=== PATIENT | male | born 1935 | race Caucasian/White ===

== ENCOUNTER 2016-11-02 12:10 | Observation (INO) ==
--- NOTE | 2016-11-02 12:56 | Emergency Department Note ---
Disposition Clinical Impression: Chest pain, Diabetes, History of hypertension, Hyperlipidemia, Frail elderly, Abnormal EKG, Renal insufficiency Disposition: Admitted As Inpatient Referrals: NONE,PCP [Non-Partnered Physician] - General Adult HPI - General Chief complaint: ED Shortness of Breath/Dyspnea Stated complaint: epigastric pain Time Seen by Provider: 11/02/16 12:47 Source: patient Limitations: no limitations - History of Present Illness HPI Narrative: 81-year-old male reports to the emergency department complaining of chest pain. It is been in the bilateral chest made area and somewhat on the right. He describes a cough and some chest pain when breathing in and out. There is no history of leg swelling or pain or coughing up blood. No syncope. No trauma. No fever runny nose or ear pain or sore throat he patient denies any previous cardiac testing, he has no history of CAD DVT PE cancer or aneurysm. The patient has had no leg swelling he does not usually take diuretics. He states he has a history of diabetes, hypertension, and hyperlipidemia. He states he is type II diabetic. There is no history of tearing back pain. Trouble walking talking hearing seeing or speaking no unilateral arm or leg weakness or numbness. No slurred speech or confusion. The patient reports he is always "shaky". There is no history of headache. Pain Scale: 7 - Related Data Allergies Allergy/AdvReac Type Severity Reaction Status Date / Time No Known Allergies Allergy Verified 11/02/16 12:16 All systems ED: reviewed and negative except as stated. Past Medical History - Past Medical History Medical history: Reports: diabetes, hyperlipidemia, hypertension Psychiatric history: Reports: no psych history - Social History Smoking Status: Never smoker Smokeless Tobacco Status: No Alcohol use: Reports: none Drug use: Reports: none Physical Exam - General Limitations: no limitations General appearance: alert, in no apparent distress - Head Head exam: atraumatic, normocephalic, normal inspection - Eye Eye exam: Present: normal appearance, PERRL, EOMI. Absent: scleral icterus, conjunctival injection, nystagmus, miosis, mydriasis, periorbital swelling - ENT ENT exam: normal exam, normal oropharynx, mucous membranes moist, TM's normal bilaterally, normal external ear exam - Neck Neck exam: Present: normal inspection, full ROM, trachea midline. Absent: tenderness, meningismus - Chest Chest inspection: Present: normal inspection, symmetric chest wall rise. Absent : tenderness - Respiratory Respiratory exam: Present: normal lung sounds bilaterally. Absent: respiratory distress, wheezes, accessory muscle use, prolonged expiratory phase, other - Cardiovascular Cardiovascular exam: Present: regular rate, normal rhythm, normal heart sounds - Abdominal Exam Abdominal exam: Present: soft, Non-Tender. Absent: tenderness, distention, guarding, rebound, rigidity, normal bowel sounds, Moreira's sign, Rovsing's sign , tenderness at McBurney's Point, pulsatile mass - Extremities Exam Extremities exam: Present: normal inspection, full ROM, normal capillary refill. Absent: tenderness, pedal edema, joint swelling, calf tenderness - Expanded Lower Extremity Exam Neurovascular/Tendon exam: Present: normal capillary refill, motor deficit. Absent: sensory deficit, tendon deficit, extremity cold to touch - Back Exam Back exam: Present: normal inspection, full ROM. Absent: tenderness, CVA tenderness (R), CVA tenderness (L), vertebral tenderness - Neurological Exam Neurological exam: Present: alert, oriented X3, CN II-XII intact. Absent: motor sensory deficit - Psychiatric Psychiatric exam: Present: normal affect, normal mood - Skin Skin exam: Present: warm, dry, intact, normal color. Absent: rash, cyanosis, diaphoresis, erythema, pallor, mottled Course Vital Signs Temperature 98.6 F 11/02/16 12:12 Pulse Rate 93 11/02/16 12:12 Respiratory Rate 18 11/02/16 12:12 Blood Pressure 130/86 11/02/16 12:12 O2 Sat by Pulse Oximetry 95 11/02/16 12:12 Temperature 98.6 F 11/02/16 12:12 Pulse Rate 81 11/02/16 14:53 Respiratory Rate 16 11/02/16 14:53 Blood Pressure 155/72 11/02/16 14:53 O2 Sat by Pulse Oximetry 95 11/02/16 14:53 Oxygen Delivery Oxygen Delivery Room Air Medical Decision Making - [facility] Narrative Medical decision making narrative: Patient has been having intermittent chest pain since last night, sometimes in the middle sometimes to the right. Sometimes associated with a cough and sometimes not. The patient is a male, over 50, he has a history of diabetes, hypertension, hyperlipidemia, and is never had a stress test or heart catheter. The patient is testing reveals no major abnormality, however based on his risk factors and elevated heart score, I thought it be appropriate to observe the patient. He was given aspirin in the ED and is agreeable to stay. Case with the hospitalist on-call who is accepted the patient to their care. - Lab Data Lab results reviewed: Yes I reviewed the patient's lab results. Result diagrams: 11/02/16 13:04 11/02/16 13:04 Lab Results 11/02/16 11/02/16 11/02/16 Range/Units 13:04 13:04 13:04 WBC 9.5 (4.3-11.1) K/mcL RBC 5.11 (4.19-5.50) M/mcL Hgb 15.6 (12.9-16.9) g/dL Hct 47.7 (37.5-50.1) % MCV 93.3 (83.0-100.0) fL MCH 30.5 (28.0-33.3) pg MCHC 32.7 (31.6-35.5) g/dL RDW 13.6 (11.5-14.5) % Plt Count 176 (140-400) K/mcL MPV 10.3 (9.4-12.4) fL Immature Gran % 0.2 (0-4) % Seg Neutrophils % 67.7 % Lymphocytes % 22.1 % Monocytes % 8.8 % Eosinophils % 0.9 % Basophils % 0.3 % Neutrophils # 6.5 (1.6-8.9) K/mcL Lymphocytes # 2.1 (0.6-4.6) K/mcL Monocytes # 0.8 (0.0-1.3) K/mcL Eosinophils # 0.1 (0.0-0.6) K/mcL Basophils # 0.0 (0.0-0.2) K/mcL Sodium 137 (136-145) mEq/L Potassium 4.3 (3.5-4.5) mEq/L Chloride 101 (98-109) mEq/L Carbon Dioxide 28 (19-29) mEq/L BUN 22 (8-26) mg/dL Creatinine 1.39 H (0.72-1.25) mg/dL Est GFR ( Amer) 60 (> 60) Est GFR (Non-Af Amer) 49 L (> 60) BUN/Creatinine Ratio 16 (6-26) Glucose 170 H (70-99) mg/dL Calculated Osmolality 291 (280-300) Lactic Acid 1.4 (0.5-2.2) mmol/L Calcium 9.7 (8.6-10.8) mg/dL Total Bilirubin (0.2-1.2) mg/dL Direct Bilirubin (0.0-0.5) mg/dL Indirect Bilirubin (0.0-1.2) mg/dL AST (5-34) Units/L ALT (0-55) Units/L Alkaline Phosphatase (38-126) Units/L Troponin I (0-0.03) ng/mL C-Reactive Protein (Less than 5) mg/L B-Natriuretic Peptide (0-100) pg/mL Serum Total Protein (6.0-8.3) g/dL Albumin (3.5-5.0) g/dL Globulin (2.4-3.5) g/dL Albumin/Globulin Ratio (1.1-2.2) Lipase (8-78) Units/L 11/02/16 11/02/16 11/02/16 Range/Units 13:04 13:04 13:04 WBC (4.3-11.1) K/mcL RBC (4.19-5.50) M/mcL Hgb (12.9-16.9) g/dL Hct (37.5-50.1) % MCV (83.0-100.0) fL MCH (28.0-33.3) pg MCHC (31.6-35.5) g/dL RDW (11.5-14.5) % Plt Count (140-400) K/mcL MPV (9.4-12.4) fL Immature Gran % (0-4) % Seg Neutrophils % % Lymphocytes % % Monocytes % % Eosinophils % % Basophils % % Neutrophils # (1.6-8.9) K/mcL Lymphocytes # (0.6-4.6) K/mcL Monocytes # (0.0-1.3) K/mcL Eosinophils # (0.0-0.6) K/mcL Basophils # (0.0-0.2) K/mcL Sodium (136-145) mEq/L Potassium (3.5-4.5) mEq/L Chloride (98-109) mEq/L Carbon Dioxide (19-29) mEq/L BUN (8-26) mg/dL Creatinine (0.72-1.25) mg/dL Est GFR ( Amer) (> 60) Est GFR (Non-Af Amer) (> 60) BUN/Creatinine Ratio (6-26) Glucose (70-99) mg/dL Calculated Osmolality (280-300) Lactic Acid (0.5-2.2) mmol/L Calcium (8.6-10.8) mg/dL Total Bilirubin 1.1 (0.2-1.2) mg/dL Direct Bilirubin 0.4 (0.0-0.5) mg/dL Indirect Bilirubin 0.7 (0.0-1.2) mg/dL AST 16 (5-34) Units/L ALT 18 (0-55) Units/L Alkaline Phosphatase 93 (38-126) Units/L Troponin I 0.00 (0-0.03) ng/mL C-Reactive Protein 41 H (Less than 5) mg/L B-Natriuretic Peptide 87 (0-100) pg/mL Serum Total Protein 7.3 (6.0-8.3) g/dL Albumin 3.6 (3.5-5.0) g/dL Globulin 3.7 H (2.4-3.5) g/dL Albumin/Globulin Ratio 1.0 L (1.1-2.2) Lipase 13 (8-78) Units/L - Radiology Data Radiology results reviewed: Yes I reviewed the patient's radiology results.
[2016-11-02 13:19] LABS: Basophils % 0.3 %; Eosinophils # 0.1 K/mcL (0.0-0.6); Eosinophils % 0.9 %; Hematocrit 47.7 % (37.5-50.1); Hemoglobin 15.6 g/dL (12.9-16.9); Immature Granulocytes % 0.2 % (0-4); Lymphocytes # 2.1 K/mcL (0.6-4.6); Lymphocytes % 22.1 %; Mean Corpuscular HGB Conc 32.7 g/dL (31.6-35.5); Mean Corpuscular Hemoglobin 30.5 pg (28.0-33.3); Mean Corpuscular Volume 93.3 fL (83.0-100.0); Mean Platelet Volume 10.3 fL (9.4-12.4); Monocytes # 0.8 K/mcL (0.0-1.3); Monocytes % 8.8 %; Neutrophils # 6.5 K/mcL (1.6-8.9); Platelet Count 176 K/mcL (140-400); Red Blood Count 5.11 M/mcL (4.19-5.50); Red Cell Distribution Width 13.6 % (11.5-14.5); Segmented Neutrophils % 67.7 %
[2016-11-02 13:31] LABS: Calcium 9.7 mg/dL (8.6-10.8); Potassium 4.3 mEq/L (3.5-4.5)
[2016-11-02 13:32] LABS: Albumin 3.6 g/dL (3.5-5.0); Bilirubin,Direct 0.4 mg/dL (0.0-0.5); Bilirubin,Indirect 0.7 mg/dL (0.0-1.2); Bilirubin,Total 1.1 mg/dL (0.2-1.2); Globulin 3.7 g/dL (2.4-3.5); Total Protein 7.3 g/dL (6.0-8.3)
[2016-11-02] MEDS ORDERED: Aspirin 325 MG TABLET PO ONE (14:15)
[2016-11-02] MEDS ORDERED: *HR* Morphine 2 MG/ML SYRINGE IVP PRN (16:26)
[2016-11-02] MEDS ORDERED: *HR* Promethazine 25 MG/ML VIAL IVP PRN (16:26)
[2016-11-02] MEDS ORDERED: Acetaminophen 325 MG TABLET PO PRN (16:26)
[2016-11-02] MEDS ORDERED: Ondansetron 4 MG/2 ML VIAL IVP PRN (16:26)
[2016-11-02] MEDS ORDERED: *HR* HYDROcodone/Acet 5/325 mg TABLET PO PRN (16:26)
[2016-11-02] MEDS ORDERED: Naloxone 0.4 MG/ML INJ IVP PRN (16:26)
[2016-11-02] MEDS ORDERED: Albuterol 2.5 MG/3 ML NEBULIZER IH PRN (16:28)
[2016-11-02] MEDS ORDERED: Benzonatate 100 MG CAPSULE PO PRN (16:29)
--- NOTE | 2016-11-02 16:35 | Internal Med History&Physical ---
Date of Encounter: 11/02/16 Time of Encounter: 15:30 Assessment and Plan (1) Chest pain Current visit: Yes Status: Acute Place the pt into tele for observation on adobe developer serial Troponin So far normal Troponin No acute EKG changes Cont ASA, Losartan Due to his age, DM2, HTN, HLD he is high risk for ACS so will get Stress test in AM Qualifiers: Qualified Code(s): R07.9 - Chest pain, unspecified (2) Cough Current visit: Yes Status: Acute mostly allergic and bronchospasm related Reviewed CXR - no infiltrates / no consolidation placed on Neb treatment also started him on Tessalon PO PRN No abx needed (3) Diabetes Current visit: Yes Status: Chronic Low grade ISS will check HbA1C Qualifiers: Qualified Code(s): E11.9 - Type 2 diabetes mellitus without complications (4) History of hypertension Current visit: Yes Status: Acute resumed home meds (5) Hyperlipidemia Current visit: Yes Status: Acute on statin will check FLP in AM Qualifiers: Qualified Code(s): E78.5 - Hyperlipidemia, unspecified (6) CKD (chronic kidney disease) stage 2, GFR 60-89 ml/min Current visit: Yes Status: Chronic stable and at baseline Internal Medicine - H&P: HPI Chief complaint: Chest pain Admitted From: Emergency Dept Plans for Post Hospital Care: Home History of present illness: Mr. Nielsen is a 81 year old male with known PMH of HTN, HLD presented to ER with Substernal and Rt side chest pain with cough and deep inspiration. He stated he has been having some cough from last 3 days , with no expectoration. No fever / No chills / No cold. His chest pain - more like sharp pain, non radiating, 5/10 in severity Past Med Surg Social Fam HX - Past Medical History Medical history: diabetes, hyperlipidemia, hypertension Psychiatric history: no psych history - Past Surgical History Surgical History: no surgical history - Social History Smoking Status: Never smoker Smokeless Tobacco Status: No Alcohol use: none Drug use: none Internal Medicine - H&P: Meds Aspirin [Lo-Dose Aspirin EC] 81 mg PO DAILY 11/02/16 [History] Cranberry Fruit Extract [Cranberry] 500 mg PO DAILY 11/02/16 [History] Losartan/Hydrochlorothiazide [Hyzaar 100-12.5 Tablet] 1 tab PO DAILY 11/02/16 [ History] Simvastatin [Zocor] 20 mg PO DAILY 11/02/16 [History] 3 Allergy/AdvReac Type Severity Reaction Status Date / Time No Known Allergies Allergy Verified 11/02/16 12:16 All Systems PM: A 10-system review of systems was performed and is negative for pertinent findings except as documented above in the HPI. Review of systems: All the systems are reviewed everything is benign except the systems and symptoms I mentioned in the history of present illness - Constitutional Vitals: Temp Pulse Resp BP Pulse Ox 98.6 F 81 16 148/61 95 11/02/16 12:12 11/02/16 14:53 11/02/16 16:18 11/02/16 16:18 11/02/16 14:53 General appearance: Present: A&O X 3, no acute distress, answers questions appropriately - Head Head exam: Present: atraumatic, normal inspection - Respiratory Respiratory exam: Present: decreased breath sounds. Absent: accessory muscle use, rales, rhonchi, wheezes - Cardiovascular Cardiovascular exam: Present: RRR, +S1, +S2. Absent: diastolic murmur, gallop, rubs, systolic murmur - GI/Abdominal GI/Abdominal exam: Present: soft, no peritoneal signs. Absent: distended, tenderness - Extremities Exam Extremities exam: Absent: calf tenderness, pedal edema, tenderness - Neurological Exam Neurological exam: Present: alert, oriented X3 - Psychiatric Psychiatric exam: Present: normal affect, normal mood Internal Med - H&P Results - Labs CBC & Chem 7: 11/02/16 13:04 11/02/16 13:04
[2016-11-02] MEDS ORDERED: Dextrose Gel 15 GM PO PRN ×2 (16:42)
[2016-11-02] MEDS ORDERED: D5% in Water 1,000 ML IVC PRN (16:42)
[2016-11-02] MEDS ORDERED: *HR* Dextrose 50 % in Water (Syg) 50 ML SYRINGE IVP PRN (16:42)
[2016-11-02] MEDS: Famotidine 20 MG TABLET PO SCH (21:20)
[2016-11-03 01:45] LABS: Chol/HDL Ratio 3.9 (0-4.9)
[2016-11-03] MEDS ORDERED: Regadenoson 0.4 MG/5 ML SYRINGE IVP ONE (06:13)
[2016-11-03] MEDS ORDERED: hydroCHLOROthiazide 25 MG TABLET PO SCH (09:00)
[2016-11-03] MEDS ORDERED: NON-FORMULARY MEDICATION 1 EACH EACH (Cranberry Fruit Extract [Cranberry] 500 MG) PO SCH (09:00)
[2016-11-03] MEDS ORDERED: Aspirin Enteric Coated 81 MG Tablet PO SCH (09:00)
[2016-11-03] MEDS ORDERED: NON-FORMULARY MEDICATION 1 EACH EACH (Losartan/Hydrochlorothiazide [Hyzaar 100-12.5 Tablet PO SCH (09:00)
[2016-11-03] MEDS: Famotidine 20 MG TABLET PO SCH (10:52)
[2016-11-03] MEDS: Insulin LISPRO 300 UNITS/3 ML VIAL SQ SCH ×2 (10:58→11:04)
[2016-11-03 10:59] VITALS: BP 168/73
--- NOTE | 2016-11-03 13:28 | Nuclear Medicine Stress Report ---
Regadenoson Nuclear Stress Name: Alvarado Nielsen Date of Study: 11/03/2016 Date: 1935 Ht: 73.0 in Medical Record#: [id number] Age: 81 Wt: 211.0 lb Gender: Male Order #: [id number] Location: [facility] Room: [facility] Supervising Provider: Nir Gupta CNP Reading Physician: Thompson Beard DO, FACC, IMTIAZ Ordering Physician: Adele Hess CNP Stress Technologist: Jose Luis Patino CRT Drier Operator Head: Og Tello Indications: Chest Pain Impression: Pharmacologic stress ECG is negative for ischemia at level of heart rate achieved. Gated EF = 73%. Small sized, mild intensity, fixed basal inferior defect consistent with artifact. Perfusion imaging was negative for ischemia or infarct. History: Hypertension Diabetes Hypercholesteremia Stress Test Summary: Stress Test Type: Pharmacologic Regadenoson 0.4mg/5ml given IV Baseline Information: Initial Heart Rate: 72 Blood Pressure: 154/66 Stress Information: Test Terminated Due to (primary): As per protocol Maximum Blood Pressure: 148/62 Maximum Heart Rate: 86 Percent Maximum Heart Rate Achieved: 61 Double Product: [id number] METS Reached: 1 Symptoms: No chest symptoms Nuclear Summary: SPECT myocardial perfusion imaging using Tc99m Sestamibi given intravenously was performed at rest and following cardiac stress testing. The resting images were obtained following initial dose of 11.6 mCi. Following stress an additional dose of 35.7 mCi was given at peak exercise or 30 seconds post regadenoson infusion. Medication Given: Time Medication Dose Units Route Findings: Stress Note * Resting ECG demonstrated normal sinus rhythm. * No baseline arrhythmias were noted. * Pharmacologic stress ECG is negative for ischemia at level of heart rate achieved. * No arrhythmias were noted during stress. * Patient had no chest pain during stress. * Normal hemodynamic responses to pharmacologic stress. Study Quality * Study quality is average. Gated EF % * Gated EF = 73%. Left Ventricle * The left ventricle is not dilated. LVEDV = 79 mL. * Normal wall motion. TID * No evidence of transient ischemic dilatation. TID ratio = 1.05. Lung Uptake * There is no evidence of increase lung uptake. Inferior Perfusion Rest * The basal inferior segment shows a mild reduction in perfusion. Inferior Perfusion Stress * The basal inferior segment shows a mild reduction in perfusion. Updated by Thompson Beard DO, JOANNA, IMTIAZ LEBRON on 11/03/2016 1:19:50 PM electronically signed on 11/03/2016 1:21:10 PM with status of Final
--- NOTE | 2016-11-03 14:00 | Electrocardiograph Report ---
[employer] Test Date: 2016-11-02 Pat Name: Alvarado Nielsen Department: 104 Room: 3B63 Gender: M Nurse Case Manager: : 1935 Requested By: Krysten See Order Number: [id number] Reading MD: Cornel Bell MD Measurements Intervals [place] Rate: 79 P: 14 AL: 141 QRS: -28 QRSD: 96 T: 13 QT: 365 QTc: 400 Interpretive Statements SINUS RHYTHM BORDERLINE LEFT AXIS DEVIATION WARNING: DATA QUALITY MAY AFFECT INTERPRETATION Electronically Signed On 11-03-2016 13:58:35 EDT by Cornel Bell MD
--- NOTE | 2016-11-03 14:04 | Discharge Summary ---
Date of Encounter: 11/03/16 Time of Encounter: 14:01 - Discharge Diagnosis (1) Chest pain Priority: Primary Status: Acute Comments: presented with chest pain that started day of presentation. Chest pain resolved without intervention. No known hx CAD. Serial troponin negative, EKG without acute ST changes. 11/03/2016 stress test negative for ischemia or infarct. LDL 108, cont home ASA, statin. Routine follow-up with PCP Qualifiers: Qualified Code(s): R07.9 - Chest pain, unspecified (2) Diabetes Priority: Primary Status: Chronic Comments: per hx. Diet controlled. Blood sugars 140s-150s. Recommend Hgb A1c with PCP Qualifiers: Diabetes mellitus type: type 2 Diabetes mellitus complication status: without complication Diabetes mellitus terminal gauger insulin use: without intermediate use Qualified Code(s): E11.9 - Type 2 diabetes mellitus without complications (3) History of hypertension Priority: Primary Status: Acute Comments: per hx. BP variable but acceptable. Continue home BP medications. Routine follow-up with PCP. (4) Hyperlipidemia Priority: Primary Status: Acute Comments: LDL 108, cont home statin Qualifiers: Qualified Code(s): E78.5 - Hyperlipidemia, unspecified (5) CKD (chronic kidney disease) stage 2, GFR 60-89 ml/min Priority: Primary Status: Chronic Comments: per hx; GFR 49. Stable. Can go up outpatient as previously planned (6) DVT prophylaxis Priority: Secondary Status: Acute Comments: ambulation - Discharge Medications Home Medications: Aspirin [Lo-Dose Aspirin EC] 81 mg PO DAILY 11/02/16 [History] Cranberry Fruit Extract [Cranberry] 500 mg PO DAILY 11/02/16 [History] Losartan/Hydrochlorothiazide [Hyzaar 100-12.5 Tablet] 1 tab PO DAILY 11/02/16 [ History] Simvastatin [Zocor] 20 mg PO DAILY 11/02/16 [History] Allergies/Adverse Reactions: 3 Allergy/AdvReac Type Severity Reaction Status Date / Time No Known Allergies Allergy Verified 11/02/16 12:16 Procedures/tests Complete & Pending: Procedures Performed prior 72 hours Category Date Time Status NM trent perf SPECT multi [NM] Routine Exams 11/02/16 16:30 Taken SP pharm nuclear stress Routine Y 11/03/16 07:45 Completed Date of admission: 11/02/16 15:47 Primary care physician: Jodi Pascualarging clinician: Adele Hess Anticipated date of discharge: 11/03/16 - Patient Status Disposition: Home, Self-Care Condition: Good Functional capacity at discharge: independent ambulation - Discharge Instructions Forms: ED Satisfaction Letter - Diet and Activity Activity: increase activity as tolerated Diet: advance to your usual diet Interval History: Seen and examined at bedside. He is sitting up in chair. Says he feels back to baseline actually has no complaints. He specifically denies chest pain, no SOB no abdominal pain and nausea vomiting or diarrhea. He is requesting to go home Hospital course: Please see assessment and plan for hospital course - Time Spent with Patient Total time spent providing and/or coordinating discharge services: Greater than 30 minutes (36 minutes spent on discharge) - Constitutional Vitals: Temp Pulse Resp BP Pulse Ox 98.2 F 74 18 168/73 99 11/03/16 10:53 11/03/16 10:53 11/03/16 10:53 11/03/16 10:53 11/03/16 10:53 General appearance: Present: A&O X 3, no acute distress, answers questions appropriately - Head Head exam: Present: atraumatic, normocephalic - Eye Eye exam: Present: PERRL, conjuntiva pink, sclera anicteric Pupils: Present: PERRL - Neck Neck exam general surgery: Present: supple, trachea midline. Absent: lymphadenopathy - Respiratory Respiratory exam: Present: CTAB. Absent: accessory muscle use, rales, rhonchi, wheezes - Cardiovascular Cardiovascular exam: Present: RRR, +S1, +S2. Absent: diastolic murmur, gallop, rubs, systolic murmur - GI/Abdominal GI/Abdominal exam: Present: normal bowel sounds, soft, no peritoneal signs. Absent: distended, tenderness - Extremities Exam Extremities exam: Present: warm, radial pulses palpable and symmetrical. Absent : calf tenderness, cyanotic, pedal edema - Neurological Exam Neurological exam: Present: CN II-XII intact, oriented X3, no focal deficits. Absent: pronater drift, facial droop, speech deficit - Skin Skin exam: Present: dry, intact
[2016-11-03] MEDS ORDERED: Famotidine 20 MG TABLET PO SCH (21:00)
== END 2016-11-03 15:25 | disposition home or self-care (01) ==
LOC: 3BNU 12:10 → EMEROO 12:10 → 3BNU 16:27
PROVIDERS: ADMIT Family Medicine; ATTEND Registered Nurse

== ENCOUNTER 2019-01-07 14:59 | Observation (INO) ==
[2019-01-07] MEDS ORDERED: 0.9 % Sodium Chloride 1,000 ML IVC ONE (17:08)
[2019-01-07] MEDS ORDERED: *HR* FentaNYL (PF) 100 MCG/2 ML VIAL IVP ONE ×2 (17:08→21:38)
[2019-01-07 17:22] LABS: Basophils % 0.2 %; Hematocrit 51.7 % (37.5-50.1); Hemoglobin 17.9 g/dL (12.9-16.9); Immature Granulocytes % 0.5 % (0-4); Lymphocytes # 2.5 K/mcL (0.6-4.6); Lymphocytes % 19.1 %; Mean Corpuscular HGB Conc 34.6 g/dL (31.6-35.5); Mean Corpuscular Volume 95.2 fL (83.0-100.0); Mean Platelet Volume 10.6 fL (9.4-12.4); Monocytes # 0.5 K/mcL (0.0-1.3); Monocytes % 3.9 %; Platelet Count 196 K/mcL (140-400); Red Blood Count 5.43 M/mcL (4.19-5.50); Red Cell Distribution Width 13.9 % (11.5-14.5); Segmented Neutrophils % 76.3 %
[2019-01-07 17:45] LABS: Albumin 4.5 g/dL (3.5-5.7); Albumin/Globulin Ratio 1.4 (1.1-2.2); Bilirubin,Direct 0.3 mg/dL (0.0-0.2); Bilirubin,Indirect 1.2 mg/dL (0.0-1.0); Bilirubin,Total 1.5 mg/dL (0.3-1.0); Calcium 10.1 mg/dL (8.6-10.3); Globulin 3.3 g/dL (2.4-3.5); Magnesium 1.5 mg/dL (1.6-2.6); Potassium 4.1 mEq/L (3.5-5.1); Total Protein 7.8 g/dL (6.4-8.9); Troponin I 0.03 ng/mL (< 0.04)
[2019-01-07 18:26] LABS: Bilirubin,Urine Negative (Negative); Blood,Urine Moderate (Negative); Clarity,Urine Cloudy (Clear); Color,Urine Yellow (Yellow); Glucose,Urine (UA) Normal (Normal); Ketones,Urine 15 mg/dL (Negative); Leukocyte Esterase,Urine Small (Negative); Nitrite,Urine Negative (Negative); PH,Urine 5.5 pH Units (5.0-8.0); Protein,Urine >=300 mg/dL (Neg-Trace); Specific Gravity,Urine 1.022 (1.010-1.025); Urobilinogen,Urine Normal (Normal)
[2019-01-07 18:29] LABS: Bacteria,Urine Few per hpf (None-Few); Hyaline Casts,Urine Few per lpf (None-Few); Squamous Epithelial Cell,Urine None Seen per lpf (None-Few); WBC,Urine 30-50 per hpf (0-3)
[2019-01-07] MEDS ORDERED: *HR* FentaNYL (PF) 100 MCG/2 ML VIAL ONE ×2 (21:42→23:09)
[2019-01-07] MEDS ORDERED: Bupivacaine/EPI 1:200k 0.5%PF 30 ML VIAL ONE (21:56)
[2019-01-07] MEDS ORDERED: *HR* Propofol 200 MG/20 ML VIAL IVP ONE (23:09)
[2019-01-07] MEDS ORDERED: *HR* Rocuronium Bromide 50 MG/5 ML VIAL ONE ×2 (23:11→23:13)
[2019-01-07] MEDS ORDERED: Dexamethasone 4 MG/ML VIAL ONE (23:13)
[2019-01-07] MEDS ORDERED: *HR* Succinylcholine 200 MG/10 ML VIAL IVP ONE (23:13)
[2019-01-07] MEDS ORDERED: Ondansetron 4 MG/2 ML VIAL ONE (23:13)
[2019-01-07] MEDS ORDERED: Lidocaine -MPF 2% 2 ML VIAL ONE (23:13)
[2019-01-08] MEDS ORDERED: *HR* FentaNYL (PF) 100 MCG/2 ML VIAL ONE (00:29)
[2019-01-08] MEDS ORDERED: Piperacillin/Tazobactam 3.375 GM in 0.9 % Sodium Chloride Mini Bag 100 ML IVPB ONE ×2 (00:46→02:42)
[2019-01-08] MEDS ORDERED: Ketorolac 30 MG/ML VIAL ONE (01:23)
[2019-01-08] MEDS ORDERED: Ringers Solution, Lactated 1,000 ML ONE (01:49)
[2019-01-08] MEDS ORDERED: Acetaminophen IV 1,000 MG/100 ML INFUS..BTL IVPB ONE (02:12)
[2019-01-08] MEDS ORDERED: Acetaminophen IV 1,000 MG/100 ML INFUS..BTL ONE (02:16)
[2019-01-08] MEDS ORDERED: Ondansetron 4 MG/2 ML VIAL IVP PRN (02:42)
[2019-01-08] MEDS: Pantoprazole 40 MG VIAL IVP SCH ×2 (06:08→17:57)
[2019-01-08] MEDS: Acetaminophen IV 1,000 MG/100 ML INFUS..BTL IVPB SCH ×3 (06:12→17:57)
[2019-01-08 06:38] LABS: Basophils % 0.2 %; Hematocrit 45.6 % (37.5-50.1); Immature Granulocytes % 0.3 % (0-4); Lymphocytes # 2.2 K/mcL (0.6-4.6); Lymphocytes % 17.1 %; Mean Corpuscular HGB Conc 33.3 g/dL (31.6-35.5); Mean Corpuscular Hemoglobin 32.6 pg (28.0-33.3); Mean Corpuscular Volume 97.9 fL (83.0-100.0); Monocytes # 0.4 K/mcL (0.0-1.3); Monocytes % 3.3 %; Platelet Count 148 K/mcL (140-400); Red Blood Count 4.66 M/mcL (4.19-5.50); Segmented Neutrophils % 79.1 %; White Blood Count 13.1 K/mcL (4.3-11.1)
[2019-01-08 06:39] LABS: Hemoglobin 15.2 g/dL (12.9-16.9); Neutrophils # 10.4 K/mcL (1.6-8.9)
[2019-01-08 06:52] LABS: Calcium 8.8 mg/dL (8.6-10.3); Potassium 4.2 mEq/L (3.5-5.1)
[2019-01-08 06:55] LABS: Platelet Estimate Normal (Normal); Reactive Lymphocytes Present (Not Present)
[2019-01-08] MEDS ORDERED: METFORMIN HCL PO SCH (09:00)
[2019-01-08] MEDS: hydroCHLOROthiazide 25 MG TABLET PO SCH (09:47)
[2019-01-09] MEDS: Acetaminophen IV 1,000 MG/100 ML INFUS..BTL IVPB SCH ×3 (00:11→12:08)
[2019-01-09] MEDS: *HR* Heparin 5,000 UNIT/ML VIAL SQ SCH ×2 (02:47→05:14)
[2019-01-09] MEDS: Pantoprazole 40 MG VIAL IVP SCH (05:13)
[2019-01-09 05:43] LABS: Basophils % 0.1 %; Hematocrit 45.9 % (37.5-50.1); Hemoglobin 15.8 g/dL (12.9-16.9); Immature Granulocytes % 0.4 % (0-4); Lymphocytes # 2.3 K/mcL (0.6-4.6); Lymphocytes % 17.4 %; Mean Corpuscular HGB Conc 34.4 g/dL (31.6-35.5); Mean Corpuscular Hemoglobin 32.7 pg (28.0-33.3); Mean Platelet Volume 10.9 fL (9.4-12.4); Monocytes # 0.4 K/mcL (0.0-1.3); Monocytes % 2.7 %; Neutrophils # 10.5 K/mcL (1.6-8.9); Platelet Count 171 K/mcL (140-400); Red Blood Count 4.83 M/mcL (4.19-5.50); Red Cell Distribution Width 13.8 % (11.5-14.5); Segmented Neutrophils % 79.4 %; White Blood Count 13.2 K/mcL (4.3-11.1)
[2019-01-09 06:00] LABS: Calcium 9.1 mg/dL (8.6-10.3); Potassium 3.9 mEq/L (3.5-5.1)
[2019-01-09] MEDS: hydroCHLOROthiazide 25 MG TABLET PO SCH (08:14)
[2019-01-09] MEDS ORDERED: Dextrose Gel 15 GM/37.5 ML TUBE PO PRN ×2 (09:37)
[2019-01-09] MEDS ORDERED: *HR* Dextrose 50 % in Water (Syg) 50 ML SYRINGE IVP PRN (09:37)
[2019-01-09] MEDS ORDERED: D5% in Water 1,000 ML IVC PRN (09:37)
[2019-01-09 10:58] VITALS: BP 166/75
[2019-01-09] MEDS ORDERED: Insulin LISPRO 300 UNITS/3 ML VIAL SQ SCH (12:00)
== END 2019-01-09 15:13 | disposition other institution (70) ==
LOC: EMEROOARM 14:59 → 3ANU 14:59
PROVIDERS: ADMIT Surgery; ATTEND Surgery